=== PATIENT | female | born 1995 | race Caucasian/White ===

== ENCOUNTER 2018-12-02 13:04 | Emergency (ER) | payer BC ==
[2018-12-02 13:16] VITALS: BP 126/78; PULSE 107; RESP 18; TEMP 97
--- NOTE | 2018-12-02 13:30 | ED ---
Lower Extremity Injury HPI - General Chief Complaint: Extremity Injury, Lower Stated Complaint: knee injury Source: patient Mode of arrival: ambulatory Limitations: no limitations - History of Present Illness Initial Comments: 23-year-old female 8 weeks presents today for left knee pain. Patient states she slipped and fell losing her balance due to the slippery tub 3 days ago. Patient states that she did not dislocate her knee but she thought she heard a pop. Patient states that since she has had pain with induration and full extension in the left knee. Patient was concerned there was a fracture or more severe injury to the knee and presents immersed her for evaluation. Patient denies numbness tingling or loss sensation she denies any head or abdominal injury denies any pelvic cramping or vaginal bleeding. Patient states her only pain is in the left knee. Patient denies any ankle pain or hip pain. Patient denies as a sharp pain that increases with ambulation. - Related Data Allergies Allergy/AdvReac Type Severity Reaction Status Date / Time No Known Allergies Allergy Verified 12/02/18 13:16 Review of Systems ROS Statement: Those systems with pertinent positive or pertinent negative responses have been documented in the HPI. ROS Other: All systems not noted in ROS Statement are negative. Past Medical History Past Medical History: No Reported History History of Any Multi-Drug Resistant Organisms: None Reported Past Surgical History: Cholecystectomy, Tonsillectomy Past Psychological History: Anxiety Smoking Status: Never smoker Past Alcohol Use History: None Reported Past Drug Use History: None Reported General Exam - General Exam Comments Initial Comments: General: The patient is awake and alert, in no distress, and does not appear acutely ill. Eye: Pupils are equal, round and reactive to light, extra-ocular movements are intact. No nystagmus. There is normal conjunctiva bilaterally. No signs of icterus. Ears, nose, mouth and throat: There are moist mucous membranes and no oral lesions. Neck: The neck is supple, there is no tenderness or JVD. Cardiovascular: There is a regular rate and rhythm. No murmur, rub or gallop is appreciated. Respiratory: Lungs are clear to auscultation, respirations are non-labored, br eath sounds are equal. No wheezes, stridor, rales, or rhonchi. Musculoskeletal: Normal inspection of the knees bilaterally nose and of his soft tissue swelling or bruising. Extensor mechanism intact. Patient is able to range the left knee however complains of pain especially full extension. Patient is full sensation both proximal and distal to injury site. Strength i ntact. Her cells pedis pulses +2 bilaterally. Compartments are soft and compressible. No posterior knee pain. No evidence of foot drop. Neurological: A&O x 3. CN II-XII intact, There are no obvious motor or sensory deficits. Coordination appears grossly intact. Speech is normal. Skin: Skin is warm and dry and no rashes or lesions are noted. Psychiatric: Cooperative, appropriate mood & affect, normal judgment. Limitations: no limitations Course Vital Signs 12/02/18 13:12 Temperature 97.0 F L Pulse Rate 107 H Respiratory 18 Rate Blood Pressure 126/78 O2 Sat by Pulse 97 Oximetry Medical Decision Making - Medical Decision Making Very well-appearing 23-year-old female presenting for left knee pain after fall. Patient denies any areas of injury or head injury. Patient denies any abdominal injury. Patient is a weeks . Patient requesting imaging studies of the left knee. Patient will be shielded. I did discuss the risk of radiation. Imaging studies reveal no acute osseous injury I did review imaging studies myself. Patient is neurovascular intact. Patient is placed in knee immobilizer concern for possible ligamentous injury. However there is no overt laxity on examination. I reviewed the imaging studies with my attending provider. I discussed the importance of following up with orthopedic surgery. As well as the importance of using the immobilizer for ambulation. Patient states she has not needed prescription for crutches. Patient is discharged appearing well aware of all return parameters as well as importance of follow- up. Patient was discharged after discussing case with Dr. Gandhi. Disposition Clinical Impression: Left knee injury, Left knee pain, Fall Disposition: HOME SELF-CARE Condition: Good Instructions (If sedation given, give patient instructions): Knee Sprain (ED), Knee Pain (ED) Additional Instructions: Please use medication as discussed. Please follow-up with family doctor in the next 2 days, I recommend use of crutches for comfort, and knee immobilizer. Please follow-up with orthopedic surgery. Please return to emergency room if the symptoms increase or worsen or for any other concerns. Is patient prescribed a controlled substance at d/c from ED?: No Referrals: None,Stated [Primary Care Provider] - 1-2 days Edson Meza, DO [Medical Doctor] - 1-2 days Time of Disposition: 15:15
--- NOTE | 2018-12-02 14:22 | XR ---
EXAMINATION TYPE: XR knee complete LT DATE OF EXAM: 12/02/2018 COMPARISON: NONE HISTORY: 23-year-old female with pain after fall yesterday TECHNIQUE: 3 views FINDINGS: Extensive mechanism is intact. There is anterior infrapatellar soft tissue swelling. No acute fractur e, subluxation, or dislocation. No significant knee joint effusion. IMPRESSION: No acute osseous abnormality seen. There is anterior infrapatellar soft tissue swelling that could re present contusion. If pain persists or concern for internal derangement, consider MRI.
== END 2018-12-02 15:34 | disposition home or self-care (01) ==
LOC: EC 13:04
DX: O9A.211 Injury, poisoning and certain other consequences of external causes complicating pregnancy, first trimester (principal); S89.92XA Unspecified injury of left lower leg, initial encounter; Z3A.08 8 weeks gestation of pregnancy; W18.2XXA Fall in (into) shower or empty bathtub, initial encounter
CPT/HCPCS: 99283